=== PATIENT | female | born 1930 | race Caucasian/White ===

== ENCOUNTER 2016-12-05 07:30 | Inpatient (IN) | payer MEDICARE, BC ==
[~2016-12-05] VITALS: Ht 157.5 cm; Wt 63.0 kg
--- NOTE | 2016-12-21 17:26 | MH ---
cc: BREANNA ANDERSON M.D. DATE OF ADMISSION 01/02/2017 ADMISSION DIAGNOSIS 1. Complete rotator cuff tear of the left shoulder 2. Biceps tendon rupture left shoulder, 3. Chondromalacia left shoulder 4. Acromioclavicular arthrosis left shoulder 5. Pain of the left shoulder HISTORY OF PRESENT ILLNESS The patient is an 86-year-old white female who has experienced more than four months of pain about her left shoulder area. She had noted the onset of her symptoms unrelated to injury or unusual activity. She was aware of limited mobility about the shoulder joint that had affected her ability to conform to activities of daily living. She was noted to have been diagnosed in the past as having a tear of her right rotator cuff many years ago that was treated nonoperatively with therapy intervention. The patient had remained symptomatic with pain generalized about her right shoulder in spite of the treatment rendered. At the time of her office evaluation, her x-ray studies did reveal elevation of the humeral head in relationship to the glenoid with associated degenerative changes of the acromioclavicular joint. Findings were felt to be suspicious with a rotator cuff tear for which the patient elected to continue with conservative management. Suggestion was made for further evaluation, however, to include a CT scan of her shoulder. The patient did proceed with diagnostic testing in this regard the results of which identified a large full-thickness distal rotator cuff tear involving the supraspinatus and infraspinatus tendons measuring approximately 3 x 4 cm. A retracted proximal biceps tendon tear was also noted as well as moderately severe acromioclavicular joint arthrosis and moderately severe focal chondromalacia of the superior central humeral head. The patient continued to have pain generalized about her left shoulder area with restricted mobility for which she returned to the office in further disposition with treatment options being discussed. The pros and cons of continued conservative management versus operative intervention that might include either an attempted mini open rotator cuff repair verses a reverse shoulder arthroplasty. Given the overall findings, a recommendation was made for reverse shoulder arthroplasty as being the more favorable course of treatment for long-term benefit. The patient was in full agreement to this recommendation and thus is currently being admitted in order that the above be accomplished. PAST MEDICAL HISTORY, HOSPITALIZATIONS AND SURGERIES 1. Left total hip arthroplasty 2. Tonsillectomy 3. Upper endoscopy Medical illnesses include 1. Hypertension 2. Elevated cholesterol. MEDICATIONS current include 1. Extra Strength Tylenol. 2. Flonase nasal spray 3. Sensimist nasal spray for environmental allergy symptoms. 4. The patient also takes a number of supplements including krill oil, CoQ 10, super B complex and calcium. ALLERGIES CELEBREX - HAS BEEN ASSOCIATED WITH VOMITING. ERYTHROMYCIN - HAS CAUSED IRREGULAR HEARTBEAT REVIEW OF SYSTEMS She does wear glasses. Denies headache, seizure or syncope. She has occasional sinus congestion but no epistaxis. Auditory acuity intact. No tinnitus. No bleeding gums or dysphagia. She has partial upper dentures. No cough, shortness of breath, upper respiratory infection. There is a history of pneumonia. No tuberculosis. No angina or heart disease. She has been medically managed in the past for hypertension. Appetite good, bowel movements regular. No hepatitis, gallbladder disease, ulcers or hemorrhoids. She has a positive history for urinary tract infection. No kidney stones. No history of fractures. No psychiatric illness. Her remaining review of systems is unremarkable and noncontributory. FAMILY HISTORY The patient has been a for at least 23 years. Her at 67 years of age with multiple medical problems involving his heart, lung and kidney. She has two adopted sons, both of whom are indicated to be in good health. Family history is positive for diabetes. SOCIAL HISTORY The patient did complete a high school education. 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 She denies active use of tobacco, ethanol consumption on a very rare and limited basis. PHYSICAL EXAMINATION VITAL SIGNS: Height 5 feet 3 inches, weight 128 pounds. GENERAL: An alert, oriented abd responsive 86-year-old white female who sits quietly upon the examination table with no apparent distress. EYES, NOSE AND THROAT: Pupils are equally round and reactive to light. Extraocular movements full. Sclerae clear. External nares clear. External auditory canals clear. Dental bridge in place in the maxillary distribution. Mucous membranes pink and moist. Pharynx clear. NECK: Supple with active range of motion and no significant pain. Carotid pulse palpable bilaterally. Trachea midline. Thyroid without enlargement. LUNGS: Clear to auscultation and percussion. No CVA tenderness. No discomfort throughout the dorsal lumbar spine. There is a suggestion for scoliotic deformity. HEART: Grade 3/6 systolic murmur heard best at the right second intercostal space. ABDOMEN: Soft, nontender. Bowel sounds present. PELVIS: Per primary care physician. EXTREMITIES: Left shoulder - there is minimal tenderness about the anterior aspect of the shoulder joint. The patient actively elevates her left hand above her head level with hesitation and guarding at the extremes of motion. Similar response is noted with cross-arm positioning of the left hand on the opposite shoulder as well as internal rotation at the mid sacral level. No sensation of crepitation or instability. Drop arm test is minimally positive. Aparicio sign negative. Weakness of external rotation. Subcontract Manager strength intact. Sensory intact. NEUROLOGIC: Cranial nerves II-XII grossly intact. IMPRESSION Complete rotator cuff tear left shoulder, biceps tendon tear left shoulder, chondromalacia left shoulder, acromioclavicular arthrosis left shoulder, pain left shoulder. PLAN Left reverse shoulder arthroplasty. The nature of the planned surgical procedure, the potential complications and risks associated, the expectations of surgery and the consent form were thoroughly reviewed with the patient in the presence of her son prior to admission to the hospital. Melina has indicated her full understanding regarding all of the above and given consent to proceed with treatment as outlined. Medical evaluation and clearance for surgery will be completed by her primary care physician, Dr. Luna . MD GREGOR Matta/ /4:53 PM /5:09 PM
[2017-01-01] MEDS ORDERED: FLUT9.9S EACH NARE (13:41)
[2017-01-01] MEDS ORDERED: KRIL500C2 PO (13:45)
[2017-01-01] MEDS ORDERED: VITA150T PO (13:45)
[2017-01-01] MEDS ORDERED: ACET-822 PO (13:45)
[2017-01-01] MEDS ORDERED: CO Q100C9 PO (13:45)
[2017-01-01] MEDS ORDERED: CALCTAB94 PO (13:45)
[2017-01-01] MEDS ORDERED: VITA100018 PO (13:45)
[2017-01-02] MEDS ORDERED: CHLORHEXIDINE GLUCONATE 2 % 1 PACK (2 CLOTHS) TOPICAL PRN (06:15)
[2017-01-02] MEDS ORDERED: LACTATED RINGER'S 1000 ML IV PRN (06:15)
[2017-01-02] MEDS ORDERED: INSULIN HUMAN REGULAR 1,000 UNITS/10 ML VIAL SQ PRN (06:15)
[2017-01-02] MEDS ORDERED: POVIDONE IODINE 7.5% SCRUB 118 ML BOTTLE TOPICAL SCH (06:15)
[2017-01-02] MEDS ORDERED: METOPROLOL TARTRATE 25 MG TAB PO PRN (06:15)
[2017-01-02] MEDS ORDERED: SODIUM CHLORID 0.9% 500 ML IV PRN (06:15)
[2017-01-02] MEDS ORDERED: ceFAZolin 2 GM PREMIX 50 ML IV SCH (06:15)
[2017-01-02] MEDS ORDERED: POVIDONE IODINE 5% (ANTISEPSIS KIT) 4 APPLICATIONS EACH NARE PRN (06:15)
[2017-01-02 06:58] VITALS: BP 179/83; PULSE 71; RESP 20; TEMP 98.6; O2SAT 99
[2017-01-02] MEDS ORDERED: ONDANSETRON HCL 4 MG/2 ML VIAL IV PUSH ONE (07:47)
[2017-01-02] MEDS ORDERED: ePHEDrine/NS 50 MG/5 ML SYR IV ONE (07:47)
[2017-01-02] MEDS ORDERED: PROPOFOL 200 MG/20 ML AMP IV ONE (07:47)
[2017-01-02] MEDS ORDERED: PHENYLEPH/NS 1000 MCG/10 ML SYR IV ONE (07:47)
[2017-01-02] MEDS ORDERED: LACTATED RINGER'S 1000 ML INJ 1,000 ML IV ONE (07:47)
[2017-01-02] MEDS ORDERED: NEOSTIGMINE 3 MG/3 ML SYR IV ONE (07:47)
[2017-01-02] MEDS ORDERED: ACETAMINOPHEN 1000 MG/100 ML VIAL IV ONE (09:41)
[2017-01-02] MEDS ORDERED: ceFAZolin INJ 1,000 MG VIAL ONE (09:43)
[2017-01-02] MEDS ORDERED: SODIUM CHLORIDE 0.9% 20 ML VIAL ONE (09:44)
[2017-01-02] MEDS ORDERED: TRANEXAMIC ACID 1 GM PRIOR TO PROCEDURE IV SCH ×2 (10:00)
[2017-01-02] MEDS ORDERED: HYDROmorphone HCL PF 2 MG/ML VIAL ONE (10:01)
[2017-01-02] MEDS ORDERED: BUPIVACAINE HCL PF 0.5% 30 ML VIAL NERV BLOCK ONE (10:21)
[2017-01-02] MEDS ORDERED: TRANEXAMIC ACID INJ 1,000 MG/10 ML AMP IV ONE (10:59)
[2017-01-02] MEDS ORDERED: TRANEXAMIC ACID 1 GM POST-OP IV SCH ×2 (13:00)
[2017-01-02] MEDS ORDERED: DO NOT ADM ANY ANTICOAGULANT DRUGS PRN (13:20)
[2017-01-02] MEDS ORDERED: MIDAZOLAM HCL 2 MG/2 ML VIAL ONE (13:27)
[2017-01-02] MEDS ORDERED: fentaNYL CITRATE 250 MCG/5 ML AMP ONE (13:27)
[2017-01-02] MEDS ORDERED: SODIUM CHLORIDE 0.9% FLUSH 5 ML FLUSH IVF PRN (13:30)
[2017-01-02] MEDS ORDERED: BISACODYL 10 MG SUPP RECTAL PRN (13:30)
[2017-01-02] MEDS ORDERED: NALOXONE HCL 0.4 MG/ML AMP IV PRN (13:30)
[2017-01-02] MEDS ORDERED: ZOLPIDEM TARTRATE 5 MG TAB PO PRN (13:30)
[2017-01-02] MEDS ORDERED: TRANEXAMIC ACID INJ 1,000 MG in SODIUM CHLORIDE 0.9% INJ 100 ML IV SCH (13:30)
[2017-01-02] MEDS ORDERED: ACETAMINOPHEN 325 MG TAB PO PRN (13:30)
[2017-01-02] MEDS ORDERED: MORPHINE SULFATE 30 MG/30 ML PCA IV SCH (13:30)
[2017-01-02] MEDS ORDERED: MISCELLANEOUS PHARMACY INFORMATION XX ONE (13:30)
[2017-01-02] MEDS ORDERED: Post-op Orders (for Pharmacy) MISC XX ONE (13:30)
[2017-01-02] MEDS ORDERED: ONDANSETRON HCL 4 MG/2 ML VIAL IVP PRN (13:30)
[2017-01-02] MEDS: DEXT 5%-NACL 0.45% 1000 ML INJ 1,000 ML IV SCH ×2 (14:00→23:10)
--- NOTE | 2017-01-02 15:06 | RADRPT ---
EXAM DATE/TIME: 01/02/2017 13:31 [place] COMPARISON: No previous studies available for comparison. INDICATIONS : Post op left shoulder surgery, reverse total. MEDICAL HISTORY : None. SURGICAL HISTORY : Total shoulder replacement. ENCOUNTER: Initial ACUITY: 1 day PAIN SCORE: Non-responsive. LOCATION: Left shoulder. FINDINGS: Single AP view of the left shoulder. Reverse shoulder prosthesis. Alignment within normal limits. No evidence of fracture. CONCLUSION: Postoperative appearance of reverse left shoulder prosthesis. Markel Woods MD on January 02, 2017 at 15:03 Board Certified Radiologist. This report was verified electronically.
--- NOTE | 2017-01-02 15:54 | PD.CONS ---
HPI Service [facility] Hospitalists Consult Requested By Josué Cardoza M.D. (Orthopedics) Reason for Consult Medical management Primary Care Physician No Primary Care Physician Diagnoses: History of Present Illness Mrs. Crook is 86, Portuguese with history inclusive of medically managed hypertension, hyperlipidemia, hiatal hernia, and GERD. She stated she is in good health and takes numerous supplements and is not on prescribed medication for her hypertension or hyperlipidemia at this time. Pt reported she was sleeping several months ago and awoke in pain from her left shoulder. She denied trauma and could not recall engaging in activities that could have resulted in her injury. Seemingly, she attempted to care for her pain and discomfort for approximately 4 months before seeking medical intervention. Dr. Cardoza diagnosed her with the following issues to her left shoulder on 12/21/16: complete rotator cuff tear, biceps tendon rupture, chondromalacia, and pain. At time of interview, Mrs. Crook was encountered in the PACU, laying a bed. Per nursing she had recently received a left shoulder nerve block. Pt denied feeling pain. She was observed to move her fingers of the left hand and reported she could feel the clinician's hand, but had a "numb" sensation. Pt denied fever, nausea, vomiting, dizziness, headache, diarrhea, constipation, cough, shortness of breath, or sore throat. Pt was admitted to [facility] on 01/02/17 for reverse left shoulder arthroplasty, performed by Dr. Cardoza. The Hospitalist team was consulted to medically manage Mrs. Crook's issues. A 10 pt ROS was completed and, excpet as noted above, was negative. Review of Systems Except as stated in HPI: all other systems reviewed are Neg Past Family Social History Allergies: Coded Allergies: Celebrex (Verified Adverse Reaction, Severe, VOMITING, 01/02/17) Erythromycin (Verified Adverse Reaction, Severe, FAST HEART RATE, 01/02/17) Past Medical History hypertension hyperlipidemia hiatal hernia GERD. She stated she is in good health and takes numerous supplements Review of her home medications did not reveal prescriptions for hypertension or hyperlipidemia at this time. Past Surgical History Left hip repair (2014) Tonsillectomy Reported Medications Reported Meds & Active Scripts Active Reported Super B Complex (Vitamin B Complex Vit C No.4) 150 Mg Tablet Unknown Dose PO DAILY Calcium 600 (Calcium Carbonate) 1,500 Mg Tab 600 Mg PO BID Co Q 10 (Coenzyme Q10 (Ubidecarenone)) 100 Mg Cap 1 Cap PO DAILY Vitamin D3 (Cholecalciferol) 1,000 Unit Tab 1,000 Units PO DAILY Krill Oil 500 Mg Capsule 1 Cap PO DAILY Tylenol Extra Strength (Acetaminophen) 500 Mg Tablet 1 Tab PO DIRECTED PRN Flonase Sensimist (Fluticasone Furoate) 9.9 Ml [place].susp 1 Spr EACH NARE EVERY OTHER DAY PRN Active Ordered Medications Current Medications Medications (Trade) Dose Ordered Sig/Tatiana Route Start Time Stop Time Status Last Admin Povidone Iodine 1 applic 1 applic ONCE TOPICAL 01/02/17 06:15 01/05/17 06:14 01/02/17 08:50 Tranexamic Acid 1000 mg/Sodium Chloride 110 ml @ 220 mls/hr ONCE IV 01/02/17 13:00 01/02/17 19:00 01/02/17 14:22 (D5W-1/ NS 1000 ml Inj) 1,000 ml @ 125 mls/hr Q8H IV 01/02/17 14:00 01/02/17 14:00 (NS Flush) 2 ml UNSCH PRN IVF 01/02/17 13:30 IV Flush 2 ml 2 ml BID IVF 01/02/17 21:00 (Ancef Inj/NS Inj) 100 ml @ 200 mls/hr Q6H IV 01/02/17 15:00 01/03/17 03:29 01/02/17 15:00 (Xarelto) 10 mg Q24H PO 01/03/17 12:20 ([place] 5-325 Mg) 1 tab Q4H PRN PO 01/02/17 13:30 ([place] 5-325 Mg) 2 tab Q4H PRN PO 01/02/17 13:30 (Tylenol) 650 mg Q6H PRN PO 01/02/17 13:30 UNV (Zofran Inj) 4 mg Q6H PRN IVP 01/02/17 13:30 (Ambien) 5 mg HS PRN PO 01/02/17 13:30 (Dulcolax Supp) 10 mg DAILY PRN RECTAL 01/02/17 13:30 (Narcan Inj) 0.4 mg UNSCH PRN IV 01/02/17 13:30 01/04/17 14:00 (Morphine 1 Mg/ ml DRYERMAN/WOMAN) 30 mg UNSCH IV 01/02/17 13:30 01/04/17 14:00 01/02/17 14:22 DRYERMAN/WOMAN Dosage Infused (Pha) 1 Q8HR .XX 01/02/17 14:00 01/04/17 14:00 Miscellaneous Information ALL NURSING DEPARTME... UNSCH PRN .XX 01/02/17 13:20 01/03/17 13:19 Family History Mother had hyperlipidemia and hiatal hernia. Social History Pt denied any use of tobacco products. She endorsed rare alcohol use (wine). She denied recreational/illicit drug use. Physical Exam Vital Signs Vital Signs Date Time Temp Pulse Resp B/P Pulse Ox O2 Delivery O2 Flow Rate FiO2 01/02/17 15:00 58 23 160/67 95 Nasal Cannula 2 01/02/17 14:30 60 21 161/69 98 Nasal Cannula 2 01/02/17 14:22 22 01/02/17 14:00 54 16 164/77 98 Nasal Cannula 2 01/02/17 13:45 52 15 162/72 99 Nasal Cannula 2 01/02/17 13:30 53 16 152/69 99 Nasal Cannula 2 01/02/17 13:18 97.5 61 12 180/77 99 Nasal Cannula 2 01/02/17 06:58 98.6 71 20 179/83 99 Physical Exam GENERAL: This is a well-nourished, well-developed patient, in no apparent distress. encountered laying a bed in the PACU. SKIN: No rashes, ecchymoses or lesions. Cool and dry. HEAD: Atraumatic. Normocephalic. EYES: Pupils equal round and reactive. Extraocular motions intact. No scleral icterus. No injection or drainage. ENT: Nose without bleeding, purulent drainage. Airway patent. NECK: Trachea midline. No lymphadenopathy. Supple and nontender. CARDIOVASCULAR: Regular rate and rhythm without murmurs, gallops, or rubs. RESPIRATORY: Clear to auscultation. Breath sounds equal bilaterally. No wheezes , rales, or rhonchi. GASTROINTESTINAL: Abdomen soft, non-tender, nondistended. No hepato- splenomegaly. No guarding. MUSCULOSKELETAL: Extremities without clubbing, cyanosis, or edema. No joint tenderness, effusion, or edema noted. No calf tenderness.Left arm in sling, fingers moved on command. NEUROLOGICAL: Awake and alert. Cranial nerves II through XII intact. Motor and sensory grossly within normal limits. Five out of 5 muscle strength in all muscle groups except left upper extremity which was not tested. Speech was clear and fluent. Imaging Last Impressions Shoulder X-Ray 01/02/17 0000 Signed Impressions: Service Date/Time: Monday, January 02, 2017 13:31 - CONCLUSION: Postoperative appearance of reverse left shoulder prosthesis. Markel Woods MD Assessment and Plan Assessment and Plan Mrs. Crook is 86, Portuguese with history inclusive of medically managed hypertension, hyperlipidemia, hiatal hernia, and GERD. She stated she is in good health and takes numerous supplements and is not on prescribed medication for her hypertension or hyperlipidemia at this time. complete rotator cuff tear of left shoulder biceps tendon rupture of left shoulder chondromalacia of left shoulder pain of the left shoulder -pain management and rehabilitation to be managed by Orthopedics. Hypertension -will address on PRN basis as pt is not currently taking medication for her condition. Hyperlipidemia -Pt's condition is diet controlled. No statins ordered at this time. Thank you for the consult. The Hospitalist team will follow. Written by Corby Trinidad Jr., acting as scribe for Dr. Salamanca on January 02, 2017 15:54 This note was transcribed by ellis VEGA. I, Dr. Violetta Villa personally performed the history, physical exam, and medical decision making; and confirmed the accuracy of the information in the transcribed note. Authenticated by Dr. Violetta Vlila on January 02, 2017 15:54 Discussed Condition With Pt and RN (at bedside in PACU). Corby Trinidad Jr. January 02, 2017 15:54 Violetta Villa MD Jan 07, 2017 19:52
[2017-01-02 20:38] VITALS: BP 133/63; PULSE 80; RESP 18; TEMP 96.7; O2SAT 92
[2017-01-02] MEDS: SODIUM CHLORIDE 0.9% FLUSH 5 ML FLUSH IVF SCH (20:55)
[2017-01-02] MEDS: PCA - TOTAL MG MORPHINE DELIVERED PER SHIFT SCH (22:00)
[2017-01-02 23:12] VITALS: BP 107/50; PULSE 71; RESP 17; TEMP 97.4; O2SAT 96
[2017-01-03 05:56] LABS: HEMATOCRIT 34.7 % (35.0-46.0); REVIEW FLAG FINAL
[2017-01-03] MEDS: DEXT 5%-NACL 0.45% 1000 ML INJ 1,000 ML IV SCH ×3 (06:00→22:00)
[2017-01-03] MEDS: PCA - TOTAL MG MORPHINE DELIVERED PER SHIFT SCH ×3 (06:00→22:00)
[2017-01-03 06:26] VITALS: BP 113/55; PULSE 64; RESP 18; TEMP 96.7; O2SAT 94
[2017-01-03] MEDS ORDERED: ASPI325T PO (06:28)
[2017-01-03] MEDS ORDERED: HYDR-3516 PO (06:28)
--- NOTE | 2017-01-03 06:32 | HHI.FF ---
Face to Face Verification Diagnosis: (1) DJD of left shoulder Physical Therapy Gait training Occupational Therapy Left UE Weight Bearing: WB as tolerated Left UE Range of Motion: Active ROM Additional Instructions limit external rotation to 45 degrees for initial 6 weeks post-op then progress as tolerated Nursing Dressing Changes: Daily dressing change I have seen patient Melina Crook on 01/03/17. My clinical findings support the need for the requested home health care services because: Limited ability to care for self High risk of falls I certify that my clinical findings support that this patient is homebound because: Post-op weakness Unsteady gait/balance Unsafe to leave home unassisted Josué Cardoza MD Jan 03, 2017 06:32
--- NOTE | 2017-01-03 07:44 | MP ---
cc: BREANNA ANDERSON DATE OF SURGERY 02 Jan 2017 PREOPERATIVE DIAGNOSES 1. Complete rotator cuff tear of the left shoulder. 2. Biceps tendon rupture left shoulder. 3. Chondromalacia left shoulder. 4. Acromioclavicular arthrosis left shoulder. 5. Pain of the left shoulder. POSTOPERATIVE DIAGNOSES 1. Complete rotator cuff tear of the left shoulder. 2. Biceps tendon rupture left shoulder. 3. Chondromalacia left shoulder. 4. Acromioclavicular arthrosis left shoulder. 5. Pain of the left shoulder. PROCEDURE Left reverse shoulder arthroplasty. SURGEON MD Nani ANESTHESIA General endotracheal. INDICATIONS An 86-year-old white female with a 4-month history of pain about her left shoulder. She had noted the onset of her symptoms unrelated to injury or unusual activity. She was aware of limited mobility about the shoulder joint that affected her ability to conform to activities of daily living. She had been diagnosed in the past as having a tear of her right rotator cuff many years ago that was initially treated nonoperatively with therapy intervention. She remained symptomatic with pain generalized about the right shoulder area in spite of treatment rendered. At the time of her office evaluation her x-ray studies revealed elevation of the humeral head in relationship to the glenoid with associated degenerative changes of the acromioclavicular joint. Findings were felt to be suspicious for rotator cuff tear for which the patient elected to continue with conservative management. The recommendation was made for CT scan evaluation but the patient subsequently did undergo, the results of which identified a large full-thickness distal rotator cuff tear involving the supraspinatus and infraspinatus tendons, measuring approximately 3 x 4 cm. A retracted proximal biceps tendon tear was also noted as well as moderately severe acromioclavicular joint arthrosis and moderately severe focal chondromalacia about the humeral head. The patient continued to experience pain about her left shoulder area with restricted mobility for which she returned to the office for further disposition with treatment options being discussed. The pros and cons of continuing with conservative management versus operative intervention that might include either an attempted mini-open rotator cuff repair vital signs reverse shoulder arthroplasty. Given the overall findings, recommendation was made for reverse shoulder arthroplasty as being the more favorable course of treatment for long-term benefit. The patient was in full agreement to this recommendation and currently was scheduled for admission in order that the above be accomplished. FORMAT Following the induction of satisfactory general anesthesia by endotracheal intubation as completed per the Department of Anesthesia, the patient was positioned upon the operating table in a modified beach-chair configuration. The right shoulder and upper extremity proper was isolated with a U-drape, thereafter being prepped with Betadine solution and draped into a sterile field in the routine manner. Prior to initiation of the actual procedure, the standard time-out protocol was completed. All parameters were appropriately addressed and confirmed by operating room personnel. Standard anterior approach to the left shoulder was initiated through a sharp skin incision overlying the deltopectoral interval, being extended from the inferior margin of the clavicle to the axillary crease. Incision was developed through underlying subcutaneous tissue with hemostasis being maintained by electrocautery. The cephalic vein was identified distally and exposed in a distal to proximal orientation and reflected laterally with a cuff of deltoid musculature. Digital release of subdeltoid adhesions was accomplished. With the shoulder maintained in a slightly externally rotated orientation, a limited release of the pectoralis insertion was completed. There was absence of the biceps tendon consistent with preoperative diagnosis. The three sister circumflex vessels were identified, clamped and coagulated again with the shoulder maintained in a slightly externally rotated orientation. The subscapularis tendon was divided along the anatomical neck with a cuff of tissue being maintained about the lesser tuberosity. The more medial segment of the tendon was tagged with #1 Ticron suture. The humeral head was delivered into the wound. There was obvious degenerative changes throughout the superior aspect of the humeral head. An entry point was made superiorly adjacent to the bicipital groove allowing entry into the humeral canal. Sequential rasping was accomplished from 4 through 10 mm. The outrigger guide was thereafter attached and a resection of the humeral head was completed in approximately 30 degrees of retroversion. Broaching was thereafter accomplished from 4 through 10-mm with a 10-mm sizing determined to be satisfactory. Covering cap was placed over the humeral broach and attention was redirected towards the glenoid. Retractors were placed posteriorly, anterior inferiorly and superiorly allowing exposure. A limited release of the subscapularis tendon facilitated the exposure and thereafter the anterior and inferior margins of the labrum and the superior and middle glenohumeral ligaments were resected. Hash taylor were placed from the 12 to 6 o'clock position and the 3 to 9 o'clock position orienting the central portion of the glenoid. Thereafter utilizing the glenoid guide in approximately 10 degrees of inferior tilt, a guide pin was placed over which the step-down reamer was passed creating a central peg hole. Thereafter a 25-mm Glenosphere mini baseplate was firmly seated. A central 35-mm screw was placed and peripheral locking screws followed with 25-mm screws being placed superiorly and inferiorly and 15-mm screws anteriorly and posteriorly. With the baseplate securely in place, a 36-mm Glenosphere with maximum inferior offset was secured to the baseplate. Attention was thereafter redirected to the proximal humerus with the 10-mm trial broach in place. A trial reduction followed utilizing a 44-mm humeral tray with 44 x 36-mm bearing insert. The shoulder was reduced and carried through a range of motion and with stability being demonstrated throughout the arc of mobility. An open dislocation was completed. The trial humeral components were removed. The canal was thoroughly irrigated and dried and thereafter the permanent 10-mm mini humeral stem was firmly seated to which a 44-mm humeral tray with locking ring with a 44 x 36 humeral bearing insert attached. An open reduction completed and a repeat range of motion again noted stability as previously described. Final irrigation was accomplished with hemostasis maintained. The subscapularis tendon was repaired with the #1 Ticron sutures previously placed. The wound was again irrigated, hemostasis maintained. The deltopectoral interval was reapproximated with a running 0 Vicryl suture. The remaining portion of the wound was closed in layers in the routine manner, skin margins being reapproximated with a running subcuticular 3-0 Vicryl suture over which Steri-Strips were applied. Xeroform gauze and a bulky dry sterile dressing were placed. The extremity was supported in an arm sling. Anesthesia was discontinued, the patient thus transferred to a hospital bed and returned to the recovery room in satisfactory condition having tolerated her operative procedure well. Estimated blood loss approximately 75-100 cc. IMPLANTS All implants were of the [employer]omet pruner. MD GREGOR Matta/SSB /1:08 PM /7:23 AM
[2017-01-03 08:00] VITALS: BP 134/64; PULSE 55; RESP 18; TEMP 96.7; O2SAT 97
[2017-01-03] MEDS: SODIUM CHLORIDE 0.9% FLUSH 5 ML FLUSH IVF SCH ×2 (09:00→21:00)
[2017-01-03 09:19] VITALS: O2SAT 96
[2017-01-03 12:00] VITALS: BP 116/62; PULSE 72; RESP 18; TEMP 98.3; O2SAT 96
[2017-01-03] MEDS: ACETAMINOPHEN/HYDROcodone 325 MG/5 MG TAB PO PRN ×3 (12:17→21:16)
[2017-01-03] MEDS ORDERED: RIVAROXABAN 10 MG TAB PO SCH (12:20)
--- NOTE | 2017-01-03 14:02 | HHI.PR ---
Subjective Remarks In bed, left arm in sling, says she has some numbness in her fingers, she is able to move fingers without any problems. Says she has some pain, however controlled by meds. No n/v/d/c. Denies fever or chills. Objective Vitals Vital Signs Date Time Temp Pulse Resp B/P Pulse Ox O2 Delivery O2 Flow Rate FiO2 01/03/17 09:19 96 21 01/03/17 08:00 96.7 55 18 134/64 97 01/03/17 06:26 96.7 64 18 113/55 94 01/03/17 06:00 17 01/02/17 23:12 97.4 71 17 107/50 96 01/02/17 22:00 18 01/02/17 20:38 96.7 80 18 133/63 92 01/02/17 17:00 59 13 121/60 99 Nasal Cannula 2 01/02/17 16:00 98.0 50 12 134/60 99 Nasal Cannula 2 01/02/17 15:00 58 23 160/67 95 Nasal Cannula 2 01/02/17 14:30 60 21 161/69 98 Nasal Cannula 2 01/02/17 14:22 22 01/02/17 14:00 54 16 164/77 98 Nasal Cannula 2 I/O 01/02/17 01/02/17 01/02/17 01/03/17 01/03/17 01/03/17 07:00 15:00 23:00 07:00 15:00 23:00 Intake Total 1600 ml 669 ml 609 ml Output Total 75 ml Balance 1525 ml 669 ml 609 ml Intake Oral 240 ml 360 ml IV Total 429 ml 249 ml Other 1600 ml Output Estimated Blood Loss 75 ml # Voids 2 3 4 # Bowel Movements 0 0 Result Diagram: 01/03/17 0540 Imaging Last Impressions Shoulder X-Ray 01/02/17 0000 Signed Impressions: Service Date/Time: Monday, January 02, 2017 13:31 - CONCLUSION: Postoperative appearance of reverse left shoulder prosthesis. Markel Woods MD Objective Remarks GENERAL: This is a very pleasant 86 yo female, well-nourished, well-developed patient, in no apparent distress. CARDIOVASCULAR: Regular rate and rhythm without murmurs, gallops, or rubs. RESPIRATORY: Clear to auscultation. Breath sounds equal bilaterally. No wheezes , rales, or rhonchi. GASTROINTESTINAL: Abdomen soft, non-tender, nondistended. No hepato- splenomegaly. No guarding. MUSCULOSKELETAL: Left arm in sling,moving fingers without difficulties, says she feels then numb. Extremities without clubbing, cyanosis, or edema. No joint tenderness, effusion, or edema noted. No calf tenderness. NEUROLOGICAL: Awake and alert. Cranial nerves II through XII intact. Motor and sensory grossly within normal limits. Five out of 5 muscle strength in all muscle groups except left upper extremity which was not tested. Speech was clear and fluent. A/P Assessment and Plan Mrs. Crook is a very pleasant 86 yo female, with history inclusive of medically managed hypertension, hyperlipidemia, hiatal hernia, and GERD. She stated she is in good health and takes numerous supplements and is not on prescribed medication for her hypertension or hyperlipidemia at this time. Complete rotator cuff tear of left shoulder Biceps tendon rupture of left shoulder Chondromalacia of left shoulder pain of the left shoulder -pain management and rehabilitation to be managed by Orthopedics. H/H stable. Hypertension, diet and exercise controlled per patient doesn't take any meds. She follows regularly with her PCP. -will address on PRN basis. Hyperlipidemia -Pt's condition is diet controlled. No statins ordered at this time. Thank you for the consult, will follow along Discussed Condition With Patient, nurse Violetta Villa MD Jan 03, 2017 14:02
[2017-01-03 16:00] VITALS: BP 138/70; PULSE 71; RESP 20; TEMP 97.8; O2SAT 98
[2017-01-03 20:09] VITALS: BP 138/67; PULSE 68; RESP 18; TEMP 97.3; O2SAT 96
[2017-01-04] VITALS: BP 160/83; PULSE 73; RESP 14; TEMP 98; O2SAT 94
[2017-01-04 05:14] VITALS: BP 154/87; PULSE 65
[2017-01-04] MEDS: ACETAMINOPHEN/HYDROcodone 325 MG/5 MG TAB PO PRN (05:16)
[2017-01-04] MEDS: PCA - TOTAL MG MORPHINE DELIVERED PER SHIFT SCH (06:00)
[2017-01-04] MEDS: DEXT 5%-NACL 0.45% 1000 ML INJ 1,000 ML IV SCH (06:00)
[2017-01-04 08:00] VITALS: BP 149/88; PULSE 82; RESP 16; TEMP 98.1; O2SAT 99
[2017-01-04] MEDS: SODIUM CHLORIDE 0.9% FLUSH 5 ML FLUSH IVF SCH (09:00)
--- NOTE | 2017-01-04 09:32 | HHI.PR ---
Subjective Remarks in the chair, ready to go home. Also family at bedside. No fever or chills. Pain is controlled by meds. No n/v/d/c. Objective Vitals Vital Signs Date Time Temp Pulse Resp B/P Pulse Ox O2 Delivery O2 Flow Rate FiO2 01/04/17 05:14 65 154/87 01/04/17 00:00 98.0 73 14 160/83 94 01/03/17 20:09 97.3 68 18 138/67 96 01/03/17 16:00 97.8 71 20 138/70 98 01/03/17 12:00 98.3 72 18 116/62 96 I/O 01/03/17 01/03/17 01/03/17 01/04/17 01/04/17 01/04/17 07:00 15:00 23:00 07:00 15:00 23:00 Intake Total 609 ml 600 ml 100 ml 240 ml Balance 609 ml 600 ml 100 ml 240 ml Intake Oral 360 ml 600 ml 100 ml 240 ml IV Total 249 ml # Voids 4 4 5 3 # Bowel Movements 0 1 0 Result Diagram: 01/03/17 0540 Imaging Last Impressions Shoulder X-Ray 01/02/17 0000 Signed Impressions: Service Date/Time: Monday, January 02, 2017 13:31 - CONCLUSION: Postoperative appearance of reverse left shoulder prosthesis. Markel Woods MD Objective Remarks GENERAL: This is a very pleasant 86 yo female, well-nourished, well-developed patient, in no apparent distress. CARDIOVASCULAR: Regular rate and rhythm without murmurs, gallops, or rubs. RESPIRATORY: Clear to auscultation. Breath sounds equal bilaterally. No wheezes , rales, or rhonchi. GASTROINTESTINAL: Abdomen soft, non-tender, nondistended. No hepato- splenomegaly. No guarding. MUSCULOSKELETAL: Left arm in sling,moving fingers without difficulties, says she feels then numb. Extremities without clubbing, cyanosis, or edema. No joint tenderness, effusion, or edema noted. No calf tenderness. NEUROLOGICAL: Awake and alert. Cranial nerves II through XII intact. Motor and sensory grossly within normal limits. Five out of 5 muscle strength in all muscle groups except left upper extremity which was not tested. Speech was clear and fluent. A/P Assessment and Plan Mrs. Crook is a very pleasant 86 yo female, with history inclusive of medically managed hypertension, hyperlipidemia, hiatal hernia, and GERD. She stated she is in good health and takes numerous supplements and is not on prescribed medication for her hypertension or hyperlipidemia at this time. Complete rotator cuff tear of left shoulder Biceps tendon rupture of left shoulder Chondromalacia of left shoulder Pain of the left shoulder -pain management and rehabilitation to be managed by Orthopedics. H/H stable. Hypertension, diet and exercise controlled per patient doesn't take any meds. She follows regularly with her PCP. Hyperlipidemia -Pt's condition is diet controlled. No statins ordered at this time. Thank you for the consult, will follow along Discussed Condition With Patient, nurse Cleared by hospitalist for Violetta Pinedo MD Jan 04, 2017 09:32
--- NOTE | 2017-01-07 08:43 | MD ---
cc: BREANNA ANDERSON CARLOS ADMISSION DATE: 01/02/2017 DISCHARGE DATE: 01/04/2017 ADMISSION DIAGNOSES Complete rotator cuff of the left shoulder. Biceps tendon rupture left shoulder. Chondromalacia left shoulder. Acromioclavicular arthrosis left shoulder. Pain of the left shoulder. DISCHARGE DIAGNOSES Complete rotator cuff of the left shoulder. Biceps tendon rupture left shoulder. Chondromalacia left shoulder. Acromioclavicular arthrosis left shoulder. Pain of the left shoulder. HISTORY An 86-year-old white female with a 4-month history of pain about the left shoulder of gradual onset unrelated to injury or unusual activity. She was aware of limited mobility about the shoulder area affecting her ability to conform to activities of daily living. She had been diagnosed in the past as having a tear of her right rotator cuff many years ago that was treated nonoperatively with therapy intervention. She remained symptomatic with pain generalized about the shoulder in spite of treatment rendered. At the time of office evaluation x-ray studies revealed elevation of the humeral head in relationship to the glenoid with associated degenerative changes of the acromioclavicular joint. Findings were felt to be suspicious for rotator cuff tear for which the patient elected to continue with conservative management. She did later undergo a CT scan which identified a large full-thickness distal rotator cuff tear involving the supraspinatus and infraspinatus tendons measuring approximately 3 x 4 cm and a retracted proximal biceps tendon tear that was noted to be associated with moderately severe acromioclavicular arthrosis and laterally severe focal chondromalacia of the superior central humeral head. The patient continued to remain symptomatic with pain about her left shoulder with restricted mobility for which she returned to the office for further disposition. The pros and cons of continuing with conservative management versus operative intervention including an attempted mini-open rotator cuff repair versus a reverse shoulder arthroplasty were outlined in detail. Given the overall findings, recommendation was made for reverse shoulder arthroplasty as being the more favorable course for treatment for long-term benefit. The patient was in full agreement to this recommendation and currently admitted in order that the above be accomplished. Her physical examination at the time of admission revealed minimal tenderness about the anterior aspect of the left shoulder. There was limited mobility as the patient elevated her hand above her head level with guarding at the extreme of motion, similar response with cross-arm positioning of the left hand on the opposite shoulder as well as internal rotation to the mid-sacral level. No sensation of crepitation or instability. Drop arm test positive. Aparicio sign negative. Weakness of external rotation. Fretted Instrument Repairer strength intact. Sensory intact. HOSPITAL COURSE Prior to admission to the hospital the patient had undergone medical evaluation and clearance for surgery as completed by her primary care physician Dr. Jeremy Velasquez. She was taken to the operating room on 02 Jan 2017 and on that date underwent a left reverse shoulder arthroplasty completed in an uncomplicated manner. The patient was noted to have tolerated her operative procedure well and her postoperative course was stable thereafter. She was progressively mobilized under the guidance of physical therapy with range of motion activity about the left shoulder and limitations regarding external rotation not to exceed 45 degrees for the initial 6 weeks. Mailmaster was consulted to assist with discharge planning. The patient had expressed her desire to be discharged home and continue her rehabilitation on an outpatient basis. Plans were finalized in this regard through the Social Service Department and she was scheduled for discharge on the second postoperative day at which time she was noted to be in a stable condition. FOLLOWUP She was scheduled be seen in office followup in approximately 4 weeks. PROGNOSIS Favorable. MD GREGOR Matta/SSB /7:01 AM /8:26 AM
== END 2017-01-04 11:27 | disposition home health service (06) | DRG 483 ==
LOC: HSDI 01-02 05:47 → N06B 01-02 17:47
PROVIDERS: ADMIT Orthopaedic Surgery; ATTEND Orthopaedic Surgery
PROC: 0RRK00Z Replacement of Left Shoulder Joint with Reverse Ball and Socket Synthetic Substitute, Open Approach (ICD-10-PCS; principal; 2017-01-02 10:12)
DX: M75.122 Complete rotator cuff tear or rupture of left shoulder, not specified as traumatic (principal); I10 Essential (primary) hypertension; M19.012 Primary osteoarthritis, left shoulder; M94.212 Chondromalacia, left shoulder; E78.5 Hyperlipidemia, unspecified; K21.9 Gastro-esophageal reflux disease without esophagitis; K44.9 Diaphragmatic hernia without obstruction or gangrene; Z88.1 Allergy status to other antibiotic agents; Z88.8 Allergy status to other drugs, medicaments and biological substances
CPT/HCPCS: 73020; 85014; 85018; 88305; 88311; 94150; C1776; J0131; J0690; J1170; J2250; J2270; J2370; J2405; J2710; J3010; J7120